=== PATIENT | female | born 1990 | race American Indian/Alaskan Native ===

== ENCOUNTER 2018-08-31 03:26 | Emergency (ER) | payer SELFPAY ==
[2018-08-31 03:44] VITALS: BP 130/80
--- NOTE | 2018-08-31 04:43 | XRay Report ---
EXAM: XR CHEST 1V AP HISTORY: Chest Pain TECHNIQUE: PA chest x-ray dated 08/31/2018 at 3:48 AM. COMPARISON: None available. FINDINGS: The heart size and mediastinum are within normal limits. The lung olguin and costophrenic angles are clear. There is no acute parenchymal infiltrate, pleural effusion, or pneumothorax seen. The visua lized bony structures are within normal limits. IMPRESSION: 1. No evidence for acute cardiopulmonary disease seen. This document is electronically signed by Darwin Osorio MD., Aug 31 2018 04:40:45 AM ET
[2018-08-31] MEDS ORDERED: NORCO 5/325 PO ONE (05:59)
[2018-08-31] MEDS ORDERED: KEFLEX PO ONE (05:59)
--- NOTE | 2018-08-31 06:01 | Emergency Department Report ---
"ED General Adult HPI - General Chief complaint: Chest Pain Stated complaint: CP/BACK/L ARM PAIN Time Seen by Provider: 08/31/18 05:55 Source: patient Mode of arrival: Ambulatory Limitations: No Limitations - History of Present Illness Initial comments: Patient is a 28-year-old after French female who presents for a right breast mass versus abscess after D seen in the ring 1 week ago patient states white drainage and erythema and pain to touch there is no fever chills no nausea vomiting no malaise. Onset/Timin -: week(s) Location: chest (breast right ) Radiation: extremity Severity scale (0 -10): 5 Quality: burning Consistency: constant Improves with: none Worsens with: none Associated Symptoms: malaise Treatments Prior to Arrival: none - Related Data Previous Rx's Medication Instructions Recorded Last Taken Type Ibuprofen [Motrin 800 MG tab] 800 mg PO Q8HR PRN #30 tablet 08/31/18 Unknown Rx cephALEXin [Keflex] 500 mg PO TID 10 Days #30 cap 08/31/18 Unknown Rx Allergies Allergy/AdvReac Type Severity Reaction Status Date / Time No Known Allergies Allergy Unverified 08/31/18 03:34 ED Review of Systems ROS: Stated complaint: CP/BACK/L ARM PAIN Other details as noted in HPI Constitutional: malaise. denies: chills, fever Eyes: denies: eye pain, eye discharge, vision change ENT: denies: ear pain, throat pain Respiratory: denies: cough, shortness of breath, wheezing Cardiovascular: other (right breast pain ). denies: chest pain, palpitations Endocrine: no symptoms reported Gastrointestinal: denies: abdominal pain, nausea, vomiting, diarrhea Genitourinary: denies: urgency, dysuria, discharge Musculoskeletal: denies: back pain, joint swelling, arthralgia Skin: other (right breast abscess versus mass ). denies: rash, lesions Neurological: denies: headache, weakness, paresthesias Psychiatric: denies: anxiety, depression Hematological/Lymphatic: denies: easy bleeding, easy bruising ED Past Medical Hx - Past Medical History Previous Medical History?: No - Surgical History Past Surgical History?: No - Social History Smoking Status: Current Every Day Smoker Substance Use Type: None - Medications Home Medications: Home Medications Medication Instructions Recorded Confirmed Last Taken Type Ibuprofen [Motrin 800 MG tab] 800 mg PO Q8HR PRN #30 tablet 08/31/18 Unknown Rx cephALEXin [Keflex] 500 mg PO TID 10 Days #30 cap 08/31/18 Unknown Rx ED Physical Exam - General Limitations: No Limitations General appearance: alert, in no apparent distress - Head Head exam: Present: atraumatic, normocephalic - Eye Eye exam: Present: normal appearance, PERRL, EOMI Pupils: Present: normal accommodation - ENT ENT exam: Present: mucous membranes moist - Neck Neck exam: Present: normal inspection, full ROM. Absent: tenderness, lymphadenopathy - Respiratory Respiratory exam: Present: normal lung sounds bilaterally. Absent: respiratory distress, wheezes, stridor, chest wall tenderness - Cardiovascular Cardiovascular Exam: Present: regular rate, normal rhythm, normal heart sounds. Absent: systolic murmur, diastolic murmur, rubs, gallop - GI/Abdominal GI/Abdominal exam: Present: soft, normal bowel sounds. Absent: distended, tenderness, rebound, bruit, hernia - Rectal Rectal exam: Present: deferred - Extremities Exam Extremities exam: Present: normal inspection, full ROM, normal capillary refill. Absent: tenderness, pedal edema, joint swelling - Back Exam Back exam: Present: normal inspection, full ROM. Absent: tenderness, CVA tenderness (R), CVA tenderness (L), muscle spasm, rash noted - Neurological Exam Neurological exam: Present: alert, oriented X3, CN II-XII intact, normal gait - Psychiatric Psychiatric exam: Present: normal affect, normal mood - Skin Skin exam: Present: warm, intact, erythema (abscess right breast , no nipple inversion no bloody drainage ) ED Course Vital Signs 08/31/18 03:28 Temperature 98.6 F Pulse Rate 101 H Respiratory 18 Rate Blood Pressure 130/80 O2 Sat by Pulse 100 Oximetry ED Medical Decision Making - EKG Data EKG shows normal: sinus rhythm, axis, intervals, QRS complexes, ST-T waves Rate: normal - EKG Data When compared to previous EKG there are: previous EKG unavailable Interpretation: normal EKG (ekg interp by ed attending NSR no ST elevated MD, ) - Radiology Data Radiology results: report reviewed, image reviewed Ordering Physician: ETHAN WINCHESTER MD Date of Service: 08/31/18 Procedure(s): XR chest 1V ap Accession Number(s): [id number] cc: ED DOC, Fluoro Time In Minutes: EXAM: XR CHEST 1V AP HISTORY: Chest Pain TECHNIQUE: PA chest x-ray dated 08/31/2018 at 3:48 AM. COMPARISON: None available. FINDINGS: The heart size and mediastinum are within normal limits. The lung olguin and costophrenic angles are clear. There is no acute parenchymal infiltrate, pleural effusion, or pneumothorax seen. The visualized bony structures are within normal limits. IMPRESSION: 1. No evidence for acute cardiopulmonary disease seen. This document is electronically signed by Rani Sanford MD., Aug 31 2018 04:40:45 AM ET Transcribed By: ASM Dictated By: RANI SANFORD Electronically Authenticated By: RANI SANFORD Signed Date/Time: 08/31/18 0443 DD/ 8 TD/TT: 08/31/18348 - Medical Decision Making Right breast abscess to 3 cm mild erythema no nipple discharge scant purulent drainage from piercing site plan follow-up with breast surgeon for evaluation of mass versus abscess DC home with prescriptions for Keflex NSAIDs moist heat therapy return to ED should symptoms worsen patient appears well and nontoxic at this time this is not sepsis. Critical care attestation.: If time is entered above; I have spent that time in minutes in the direct care of this critically ill patient, excluding procedure time. ED Disposition Clinical Impression: Breast abscess of female Disposition: DC-01 TO HOME OR SELFCARE Is pt being admited?: No Does the pt Need Aspirin: No Condition: Stable Instructions: Breast Abscess Drainage (ED) Additional Instructions: [address] [address] | | Friday - Friday 8 a.m. to 4:30 p.m. Prescriptions: cephALEXin [Keflex] 500 mg PO TID 10 Days #30 cap Ibuprofen [Motrin 800 MG tab] 800 mg PO Q8HR PRN #30 tablet PRN Reason: pain Referrals: JOSE CARLOS DARDEN DO [Staff Physician] - 3-5 Days Forms: Work/School Release Form(ED) Time of Disposition: 06:13"
== END 2018-08-31 06:44 | disposition home or self-care (01) ==
LOC: ED 03:26
DX: N61.1 Abscess of the breast and nipple (principal); F17.200 Nicotine dependence, unspecified, uncomplicated
CPT/HCPCS: 71045; 93005; 93010; 99283

== ENCOUNTER 2020-02-23 19:10 | Emergency (ER) | payer OTHER ==
[2020-02-23] MEDS ORDERED: ASPIRIN 325 MG TAB PO ONE (20:55)
[2020-02-23 21:59] LABS: Basophils # (Auto) 0.1 K/mm3 (0.0-0.1); Basophils % (Auto) 0.9 % (0.0-1.8); Eosinophils # (Auto) 0.3 K/mm3 (0.0-0.4); Eosinophils % (Auto) 2.3 % (0.0-4.3); Hematocrit 42.8 % (30.3-42.9); Lymphocytes # (Auto) 3.8 K/mm3 (1.2-5.4); Lymphocytes % (Auto) 29.6 % (13.4-35.0); Mean Corpuscular HGB Conc 33 % (30-34); Mean Corpuscular Volume 88 fl (79-97); Monocytes % (Auto) 7.5 % (0.0-7.3); Platelet Count 306 K/mm3 (140-440); Red Blood Count 4.86 M/mm3 (3.65-5.03); Red Cell Distribution Width 13.5 % (13.2-15.2)
--- NOTE | 2020-02-23 21:59 | XRay Report ---
CHEST 2 VIEWS INDICATION / CLINICAL INFORMATION: Chest Pain. COMPARISON: 08/31/2018. FINDINGS: SUPPORT DEVICES: None. HEART / MEDIASTINUM: No significant abnormality. LUNGS / PLEURA: No significant pulmonary or pleural abnormality. No pneumothorax. ADDITIONAL FINDINGS: No significant additional findings. IMPRESSION: No acute cardiopulmonary abnormality. Signer Name: Brigido Freed MD Signed: 02/23/2020 9:54 PM Workstation Name: [id number]
[2020-02-23 22:20] LABS: Blood Urea Nitrogen 8 mg/dL (7-17); Calcium 9.3 mg/dL (8.4-10.2); Hemolysis Index 20
[2020-02-23 22:30] LABS: BUN/Creatinine Ratio 13
[2020-02-23 22:57] VITALS: BP 129/81
[2020-02-24] MEDS ORDERED: methylPREDNISolone Sod Succinate 125 MG/2 ML INJ IV ONE (00:16)
[2020-02-24] MEDS ORDERED: SODIUM CHLORIDE 0.9% 1000 ML 1,000 ML IV ONE (00:17)
[2020-02-24 01:15] LABS: INR 0.95 (0.87-1.13)
[2020-02-24 01:16] LABS: Partial Thromboplastin Time 28.1 Sec. (24.2-36.6)
--- NOTE | 2020-02-24 03:19 | Cat Scan Report ---
CTA CHEST WITH IV CONTRAST INDICATION / CLINICAL INFORMATION: P.E. PROTOCOL!!! dyspnea, chest pain. Hx of previous P.E.'s. TECHNIQUE: Axial CT images were obtained through the chest after injection of 100 mL IV contrast. 3 plane MIP an d/or 3D reconstructions were produced. All CT scans at this location are performed using CT dose redu ction for [facility] by means of automated exposure control. COMPARISON: None available. FINDINGS: PULMONARY ARTERIES: No pulmonary emboli. THORACIC AORTA: No significant abnormality. HEART: No significant abnormality. CORONARY ARTERIES: No significant calcification. PLEURA: No pleural effusion. No pneumothorax. LYMPH NODES: No significant adenopathy. LUNGS: No acute air space or interstitial disease. ADDITIONAL FINDINGS: None. UPPER ABDOMEN: No acute findings. SKELETAL STRUCTURES: No significant osseous abnormality. IMPRESSION: 1. No CT evidence for pulmonary embolism. 2. No acute pulmonary or pleural disease. Signer Name: Gema Dyson MD Signed: 02/24/2020 3:15 AM Workstation Name: [id number]
--- NOTE | 2020-02-24 03:40 | Emergency Department Report ---
- General Chief Complaint: Chest Pain Stated Complaint: CHEST PAIN, COUGHING Source: patient Mode of arrival: Ambulatory Limitations: No Limitations - History of Present Illness Initial Comments: Patient is a 29-year-old -Grenadian female with a history of PEs and asthma who presents to the ED with complaint of acute onset persistent shortness of breath, pleuritic chest pain, nasal and sinus congestion, frontal sinus pressure and persistent dry cough for the last 2 days. Patient states that 24 h ours ago she was unable to breathe because of chest tightness and wheezing and had to use her child's albuterol nebulizer to help him breathe better. Patient states that she has been taking [id number] medications mainly decongestants but that these have not helped her symptoms. Patient states that she is concerned about the symptoms because of her history of PEs given the fact that she is on control. Patient denies fever, chills, nausea, vomiting, diarrhea, abdominal pain, dizziness, syncope, palpitations, change in vision, seizures, dysuria, urinary frequency and urgency, back pain or sore throat. MD Complaint: cough, rhinorrhea, nasal congestion, sinus pain, other (Pleuritic chest pain with shortness of breath) -: Sudden, days(s) (2) Severity: moderate Severity scale (0 -10): 5 Quality: sharp, aching, other (Chest tightness) Consistency: constant Improves With: nothing Worsens With: nothing Context: sick contacts Associated Symptoms: denies other symptoms, headache, rhinorrhea, nasal congestion, cough, chest pain (Pleuritic chest pain with tightness), shortness of breath. denies: fever, chills, myalgias, diaphoresis, sore throat, stiff neck, abdominal pain, nausea, vomiting, diarrhea, dysuria, rash, confusion, ri ght sweats, weight loss, epistaxis, ear pain Treatments Prior to Arrival: "cold medicine" - Related Data Previous Rx's Medication Instructions Recorded Last Taken Type Ibuprofen [Motrin 800 MG tab] 800 mg PO Q8HR PRN #30 tablet 08/31/18 Unknown Rx cephALEXin [Keflex] 500 mg PO TID 10 Days #30 cap 08/31/18 Unknown Rx Albuterol Sulfate [Proventil Hfa] 1 - 2 puff IH Q4H PRN #1 hfa.aer.ad 02/24/20 Unknown Rx Azithromycin [Zithromax Z-SHEREE] 250 mg PO DAILY #6 tablet 02/24/20 Unknown Rx Benzonatate [Tessalon Perles] 100 mg PO Q8HR #30 capsule 02/24/20 Unknown Rx Cetirizine HCl [Zyrtec 10mg tab] 10 mg PO DAILY #30 tablet 02/24/20 Unknown Rx Ibuprofen [Motrin] 800 mg PO Q8HR PRN #24 tablet 02/24/20 Unknown Rx methylPREDNISolone [Medrol 4MG 4 mg PO DAILY #21 tab.ds.pk 02/24/20 Unknown Rx DOSEPAK (21 tabs)] Allergies Allergy/AdvReac Type Severity Reaction Status Date / Time No Known Allergies Allergy Verified 02/24/20 00:19 ED Review of Systems ROS: Stated complaint: CHEST PAIN, COUGHING Other details as noted in HPI Constitutional: denies: chills, fever Eyes: denies: eye pain, eye discharge, vision change ENT: congestion, other (Grossly congested nasal passages; frontal and maxillary sinus pressure). denies: ear pain, throat pain Respiratory: cough, shortness of breath, wheezing Cardiovascular: chest pain (Chest tightness and pleuritic chest pain). denies: palpitations Endocrine: no symptoms reported Gastrointestinal: denies: abdominal pain, nausea, vomiting, diarrhea Genitourinary: denies: urgency, dysuria, discharge Musculoskeletal: denies: back pain, joint swelling, arthralgia Skin: denies: rash, lesions Neurological: denies: headache, weakness, paresthesias Psychiatric: denies: anxiety, depression Hematological/Lymphatic: denies: easy bleeding, easy bruising ED Past Medical Hx - Past Medical History Previous Medical History?: Yes Hx Pulmonary Embolism: Yes (2013) Hx Asthma: Yes Additional medical history: Lupus anticoagulant. PEs x2 L lung; most recent 2013 - Surgical History Past Surgical History?: No - Social History Smoking Status: Current Every Day Smoker Substance Use Type: None - Medications Home Medications: Home Medications Medication Instructions Recorded Confirmed Last Taken Type Ibuprofen [Motrin 800 MG tab] 800 mg PO Q8HR PRN #30 tablet 08/31/18 Unknown Rx cephALEXin [Keflex] 500 mg PO TID 10 Days #30 cap 08/31/18 Unknown Rx Albuterol Sulfate [Proventil Hfa] 1 - 2 puff IH Q4H PRN #1 hfa.aer.ad 02/24/20 Unknown Rx Azithromycin [Zithromax Z-SHEREE] 250 mg PO DAILY #6 tablet 02/24/20 Unknown Rx Benzonatate [Tessalon Perles] 100 mg PO Q8HR #30 capsule 02/24/20 Unknown Rx Cetirizine HCl [Zyrtec 10mg tab] 10 mg PO DAILY #30 tablet 02/24/20 Unknown Rx Ibuprofen [Motrin] 800 mg PO Q8HR PRN #24 tablet 02/24/20 Unknown Rx methylPREDNISolone [Medrol 4MG 4 mg PO DAILY #21 tab.ds.pk 02/24/20 Unknown Rx DOSEPAK (21 tabs)] ED Physical Exam - General Limitations: No Limitations General appearance: alert, in no apparent distress - Head Head exam: Present: atraumatic, normocephalic, normal inspection - Eye Eye exam: Present: normal appearance, PERRL, EOMI Pupils: Present: normal accommodation - ENT ENT exam: Present: normal orophraynx, mucous membranes moist, TM's normal bilaterally, normal external ear exam, other (Grossly congested nasal passages) - Neck Neck exam: Present: normal inspection, full ROM. Absent: tenderness, lymphadenopathy - Respiratory Respiratory exam: Present: normal lung sounds bilaterally. Absent: respiratory distress, wheezes, rales, rhonchi, stridor, chest wall tenderness, accessory mu scle use, decreased breath sounds, prolonged expiratory - Cardiovascular Cardiovascular Exam: Present: normal rhythm, tachycardia, normal heart sounds. Absent: systolic murmur, diastolic murmur, rubs, gallop - GI/Abdominal GI/Abdominal exam: Present: soft, normal bowel sounds. Absent: tenderness, guarding, rebound, hyperactive bowel sounds, hypoactive bowel sounds, organomegaly - Extremities Exam Extremities exam: Present: normal inspection, full ROM, normal capillary refill - Back Exam Back exam: Present: normal inspection, full ROM. Absent: tenderness, CVA tenderness (R), CVA tenderness (L), muscle spasm, paraspinal tenderness, alexa tebral tenderness - Neurological Exam Neurological exam: Present: alert, oriented X3, CN II-XII intact, normal gait, reflexes normal - Psychiatric Psychiatric exam: Present: normal affect, normal mood - Skin Skin exam: Present: warm, dry, intact, normal color. Absent: rash ED Course Vital Signs 02/23/20 20:50 Temperature 98.3 F Pulse Rate 104 H Respiratory 16 Rate Blood Pressure 129/81 O2 Sat by Pulse 100 Oximetry ED Medical Decision Making - Lab Data Result diagrams: 02/23/20 21:28 02/23/20 21:28 - Radiology Data Radiology results: report reviewed, image reviewed Findings [facility] [address] [place] [address] Cat Scan Report Signed Patient: IVAN ELLIOTT MR #: [id number] : 1990 Acct:[id number] Age/Sex: 29 / F ADM Date: 02/23/20 Loc: ED Attending Dr: Ordering Physician: DUNG WILSON Date of Service: 02/24/20 Procedure(s): CT angio chest Accession Number(s): [id number] cc: DUNG WILSON CTA CHEST WITH IV CONTRAST INDICATION / CLINICAL INFORMATION: P.E. PROTOCOL!!! dyspnea, chest pain. Hx of previous P.E.'s. TECHNIQUE: Axial CT images were obtained through the chest after injection of 100 mL IV contrast. 3 plane MIP and/or 3D reconstructions were produced. All CT scans at this location are performed using CT dose reduction for [facility] by means of automated exposure control. COMPARISON: None available. FINDINGS: PULMONARY ARTERIES: No pulmonary emboli. THORACIC AORTA: No significant abnormality. HEART: No significant abnormality. CORONARY ARTERIES: No significant calcification. PLEURA: No pleural effusion. No pneumothorax. LYMPH NODES: No significant adenopathy. LUNGS: No acute air space or interstitial disease. ADDITIONAL FINDINGS: None. UPPER ABDOMEN: No acute findings. SKELETAL STRUCTURES: No significant osseous abnormality. IMPRESSION: 1. No CT evidence for pulmonary embolism. 2. No acute pulmonary or pleural disease. Signer Name: Gema Dyson MD Signed: 02/24/2020 3:15 AM Workstation Name: [id number] Transcribed By: JR Dictated By: Gema Dyson MD Electronically Authenticated By: Gema Dyson MD Signed Date/Time: 02/24/20314 DD/ 8 TD/TT: Findings [facility] [address] [place] [address] XRay Report Signed Patient: IVAN ELLIOTT MR #: [id number] : 1990 Acct:[id number] Age/Sex: 29 / F ADM Date: 02/23/20 Loc: ED Attending Dr: Ordering Physician: ED MD ANNABELLA Date of Service: 02/23/20 Procedure(s): XR chest routine 2V Accession Number(s): [id number] cc: ED MD ANNABELLA Fluoro Time In Minutes: CHEST 2 VIEWS INDICATION / CLINICAL INFORMATION: Chest Pain. COMPARISON: 08/31/2018. FINDINGS: SUPPORT DEVICES: None. HEART / MEDIASTINUM: No significant abnormality. LUNGS / PLEURA: No significant pulmonary or pleural abnormality. No pneumothorax. ADDITIONAL FINDINGS: No significant additional findings. IMPRESSION: No acute cardiopulmonary abnormality. Signer Name: Fred Freed MD Signed: 02/23/2020 9:54 PM Workstation Name: [id number] Transcribed By: SS Dictated By: FRED FREED Electronically Authenticated By: FRED FREED Signed Date/Time: 02/23/202153 DD/ 53 TD/TT: - Medical Decision Making This is a 29-year-old -Gren[place] female with a history of PEs and asthma who presents to the ED with complaint of acute onset persistent shortness of breath, pleuritic chest pain, nasal and sinus congestion, frontal sinus pressure and persistent dry cough for the last 2 days. Patient states that 24 hours ago she was unable to breathe because of chest tightness and wheezing and had to use her child's albuterol nebulizer to help him breathe better. Patient states that she has been taking vwfs-psc-[id number] medications mainly decongestants but that these have not helped her symptoms. Patient states that she is concerned about the symptoms because of her history of PEs given the fact that she is on control. In the ED, patient is alert and oriented x3 and is not in any distress but anxious, tachycardic and afebrile in triage. Chest x-ray shows no acute cardiopulmonary abnormalities or pneumonitis. EKG shows sinus tachycardia with a ventricular rate of 100 bpm, probable left atrial enlargement, borderline ST elevation in lateral leads. Lab test results were reviewed and showed acute leukocytosis of 12,800, hyperglycemia of 296 mg/dL but the rest of the lab test results were nonactionable including initial and repeat troponin levels as well as the coags. Based on the patient's history of PEs, tachycardia in triage and the fact that the patient is on control, chest CTA was performed to rule out PE. The chest CT angiogram showed no CT evidence for pulmonary embolism, or any other acute pulmonary or pleural disease. Patient was treated with aspirin, Solu-Medrol and normal saline 1 L IV bolus x1. On reevaluation, patient felt better and was discharged home on medications. Patient was advised to follow-up with her primary care physician in 5 to 7 days for reevaluation or return to the ED immediately if symptoms get worse. - Differential Diagnosis Pneumonia; Bronchitis; URI; PE; ACS; Asthma Critical care attestation.: If time is entered above; I have spent that time in minutes in the direct care of this critically ill patient, excluding procedure time. ED Disposition Clinical Impression: Acute upper respiratory infection, Acute asthmatic bronchitis Acute bronchitis Qualifiers: Bronchitis organism: unspecified organism Qualified Code(s): J20.9 - Acute bronchitis, unspecified Disposition: DC-01 TO HOME OR SELFCARE Is pt being admited?: No Does the pt Need Aspirin: No Condition: Stable Instructions: Acute Bronchitis (ED), Upper Respiratory Infection, Adult, [id number], Acute Bronchitis, Adult, Ovel-ml-Wesk, Asthma, Adult, [id number] Additional Instructions: All lab test results are unremarkable. Chest x-ray shows no acute cardiopulmonary abnormalities or pneumonitis. Chest CTA showed no evidence of PE or any cardiopulmonary abnormalities. Therefore take medications with food, drink plenty of fluids and follow-up with your primary care physician in 5 to 7 days for reevaluation or return to the ED immediately if symptoms get worse. Prescriptions: methylPREDNISolone [Medrol 4MG DOSEPAK (21 tabs)] 4 mg PO DAILY #21 tab.ds.pk Ibuprofen [Motrin] 800 mg PO Q8HR PRN #24 tablet PRN Reason: Pain , Severe (7-10) Albuterol Sulfate [Proventil Hfa] 1 - 2 puff IH Q4H PRN #1 hfa.aer.ad PRN Reason: Dyspnea Benzonatate [Tessalon Perles] 100 mg PO Q8HR #30 capsule Azithromycin [Zithromax Z-SHEREE] 250 mg PO DAILY #6 tablet Cetirizine HCl [Zyrtec 10mg tab] 10 mg PO DAILY #30 tablet Referrals: KRISTAN ARAIZA MD [Staff Physician] - 3-5 Days Forms: Work/School Release Form(ED) Time of Disposition: 03:52 Print Language: VENEZUELAN
[2020-02-24] MEDS ORDERED: ASPIRIN 325 MG TAB ONE (03:56)
[2020-02-24] MEDS ORDERED: SODIUM CHLORIDE 0.9% 1000 ML 1,000 ML ONE (03:57)
[2020-02-24] MEDS ORDERED: methylPREDNISolone Sod Succinate 125 MG/2 ML INJ ONE (03:57)
== END 2020-02-24 03:10 | disposition home or self-care (01) ==
LOC: ED 19:10
DX: J06.9 Acute upper respiratory infection, unspecified (principal); J45.909 Unspecified asthma, uncomplicated; F17.200 Nicotine dependence, unspecified, uncomplicated; Z79.899 Other long term (current) drug therapy
CPT/HCPCS: 36415; 71046; 71275; 80048; 84484; 85025; 85610; 85730; 93005; 96361; 96374; 99285; J2930; J7030; Q9967